=== PATIENT | female | born 1965 | race Hispanic/Latino ===

== ENCOUNTER 2018-04-14 13:23 | Outpatient (CLI) | payer BC ==
--- NOTE | 2018-04-14 14:43 | MMO ---
BILATERAL MAMMOGRAMS: DATE: 04/14/18 HISTORY: Screening mammography. COMPARISON: Multiple exams back to 11/24/12. FINDINGS: Scattered fibroglandular densities and benign-appearing calcifications. No dominant mass or suspiciou s calcifications. The study was evaluated with the assistance of computer-aided detection. IMPRESSION: BIRADS 1: Negative Suggest routine follow-up. POS: [facility]
== END 2018-04-14 13:24 | disposition home or self-care (01) ==
LOC: SCSMAMMO 13:23
PROVIDERS: ATTEND Family Medicine
DX: Z12.31 Encounter for screening mammogram for malignant neoplasm of breast (principal)
CPT/HCPCS: 77067